=== PATIENT | male | born 1990 | race American Indian/Alaskan Native ===

== ENCOUNTER 2017-09-11 09:09 | Emergency (ER) | payer SELFPAY ==
[2017-09-11] MEDS ORDERED: NACL 0.9% 1000 ML 1,000 ML IV ONE (10:53)
[2017-09-11] MEDS ORDERED: ZOFRAN IV ONE (10:53)
[2017-09-11] MEDS ORDERED: DILAUDID IM ONE (10:53)
--- NOTE | 2017-09-11 11:05 | Emergency Department Report ---
ED General Adult HPI - General Chief complaint: Pain General Stated complaint: GROIN PAIN Time Seen by Provider: 09/11/17 10:21 Source: patient Mode of arrival: Ambulatory Limitations: No Limitations - History of Present Illness Initial comments: This is a 27-year-old male nontoxic, well nourished in appearance, no acute signs of distress left-sided testicular and groin pain 4 days. He stated 4 days ago he slipped and did a split with his legs and developed sharp testicular pain. Denies any trauma directly to the testicular region. Denies any dysuria, polyuria, hematuria, fever, chills, nausea, vomiting, chest pain, shortness of breath, numbness, telemetry, back pain. Patient denies any trauma to any other extremities. Denies any allergies. Past medical history includes asthma. 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 MD Complaint: left testicular pain -: Gradual, days(s) (4) Location: genitals (left testicle) Radiation: non-radiation Severity scale (0 -10): 10 Quality: aching, sharp Consistency: constant Improves with: none Worsens with: none Associated Symptoms: denies other symptoms. denies: confusion, chest pain, cough, diaphoresis, fever/chills, headaches, loss of appetite, malaise, nausea/ vomiting, rash, seizure, shortness of breath, syncope, weakness Treatments Prior to Arrival: none - Related Data Allergies Allergy/AdvReac Type Severity Reaction Status Date / Time No Known Allergies Allergy Unverified 09/11/17 09:26 ED Review of Systems ROS: Stated complaint: GROIN PAIN Other details as noted in HPI Constitutional: denies: chills, fever Eyes: denies: eye pain, eye discharge, vision change ENT: denies: ear pain, throat pain Respiratory: denies: cough, shortness of breath, wheezing Cardiovascular: denies: chest pain, palpitations Endocrine: no symptoms reported Gastrointestinal: denies: abdominal pain, nausea, diarrhea Genitourinary: testicular pain. denies: urgency, dysuria Musculoskeletal: denies: back pain, joint swelling, arthralgia Skin: denies: rash, lesions Neurological: denies: headache, weakness, paresthesias Psychiatric: denies: anxiety, depression Hematological/Lymphatic: denies: easy bleeding, easy bruising ED Past Medical Hx - Past Medical History Previous Medical History?: Yes Hx Asthma: Yes Additional medical history: Left wrist fx, Fx right thumb and left thumb fx, lower back pain - Surgical History Past Surgical History?: No - Social History Smoking Status: Current Every Day Smoker Substance Use Type: Alcohol, Marijuana, Non Opiate Pain ED Physical Exam - General Limitations: No Limitations General appearance: alert, in no apparent distress - Head Head exam: Present: atraumatic, normocephalic - Eye Eye exam: Present: normal appearance, PERRL, EOMI. Absent: scleral icterus, conjunctival injection, nystagmus, periorbital swelling, periorbital tenderness Pupils: Present: normal accommodation - ENT ENT exam: Present: normal exam, normal orophraynx, mucous membranes moist, TM's normal bilaterally, normal external ear exam - Neck Neck exam: Present: normal inspection, full ROM. Absent: tenderness, meningismus, lymphadenopathy, thyromegaly - Respiratory Respiratory exam: Present: normal lung sounds bilaterally. Absent: respiratory distress, wheezes, rales, rhonchi, stridor, chest wall tenderness, accessory muscle use, decreased breath sounds, prolonged expiratory - Cardiovascular Cardiovascular Exam: Present: regular rate, normal rhythm, normal heart sounds. Absent: irregular rhythm, systolic murmur, diastolic murmur, rubs, gallop - GI/Abdominal GI/Abdominal exam: Present: soft, normal bowel sounds. Absent: distended, tenderness, guarding, rebound, rigid, diminished bowel sounds - Rectal Rectal exam: Present: deferred - exam: Present: normal inspection, testicular tenderness (left), scrotal swelling (left), other (positive cremasteric reflex (normal). Negative baxter clapper deformity.). Absent: urethral discharge, vertical testicular lie External exam: Present: normal external exam. Absent: erythema, swelling, lesions, lacerations, ecchymosis, bleeding - Extremities Exam Extremities exam: Present: normal inspection, full ROM, normal capillary refill. Absent: tenderness, pedal edema, joint swelling, calf tenderness - Back Exam Back exam: Present: normal inspection, full ROM. Absent: tenderness, CVA tenderness (R), CVA tenderness (L), muscle spasm, paraspinal tenderness, vertebral tenderness, rash noted - Neurological Exam Neurological exam: Present: alert, oriented X3, CN II-XII intact, normal gait, reflexes normal - Psychiatric Psychiatric exam: Present: normal affect, normal mood - Skin Skin exam: Present: warm, dry, intact, normal color. Absent: rash - Other Other exam information: negative tense edema, blisters, or crepitus noted in the groin/testicular region noted. ED Course Vital Signs 09/11/17 09:26 Temperature 98.6 F Pulse Rate 96 H Respiratory 20 Rate Blood Pressure 109/64 O2 Sat by Pulse 100 Oximetry - Reevaluation(s) Reevaluation #1: 09/11/17 11:05 Patient is speaking in full sentences with no signs of distress noted. Reevaluation #2: 09/11/17 13:23 Second call put out to [facility] for Urology consult. - Consultations Consultation #1: 09/11/17 11:05 Dr. White has been consulted about patient history, physical examination and examined the patient and agrees with the plan of care to ED. Consultation #2: 09/11/17 14:20 Dr. Hung in [facility] was consulted about patient history, physical exam, and imaging and agrees to transport for further eval. Consultation #3: 09/11/17 14:21 Dr. Rey [facility] was consulted and accepts patients. ED Medical Decision Making - Lab Data Result diagrams: 09/11/17 10:55 09/11/17 10:55 - Medical Decision Making This is a 27-year-old male that presents with acute epididiymitis and decreased blood flow to left testis. Patient was examined by myself and Dr. White. Patient received Rocephine and Azithromycin in the ED for epididimyitis. Patient was consulted with Dr. Hung ([facility]) and agrees to have the patient transferred for further evaluation to the ED. Dr. Rey in [facility] accepted patient. Patient was notified of the plan and agrees with the plan with no further questions noted by the patient. At time time of transport, the patient does not seem toxic or ill in appearance. No acute signs of distress noted. Patient agrees to transport treatment plan of care. No further questions noted by the patient. Critical care attestation.: If time is entered above; I have spent that time in minutes in the direct care of this critically ill patient, excluding procedure time. ED Disposition Clinical Impression: Acute epididymitis UTI (urinary tract infection) Qualifiers: Urinary tract infection type: site unspecified Hematuria presence: without hematuria Qualified Code(s): N39.0 - Urinary tract infection, site not specified Disposition: DC/TX-70 ANOTHER TYPE HLTHCARE Is pt being admited?: No Condition: Stable Instructions: Epididymitis (ED) Referrals: PRIMARY CARE, [Primary Care Provider] - 3-5 Days Forms: STI Treatment and Prevention
[2017-09-11 11:27] LABS: Alanine Aminotransferase 19 units/L (7-56); Albumin 3.6 g/dL (3.9-5); Albumin/Globulin Ratio 0.9 %; Alkaline Phosphatase 123 units/L (35-129); Anion Gap 16 mmol/L; BUN/Creatinine Ratio 13; Blood Urea Nitrogen 9 mg/dL (9-20); Calcium 8.7 mg/dL (8.4-10.2); Carbon Dioxide 26 mmol/L (22-30); Chloride 100.2 mmol/L (98-107); Glucose 94 mg/dL (75-100); Potassium 4.3 mmol/L (3.6-5.0); Sodium 138 mmol/L (137-145); Total Protein 7.8 g/dL (6.3-8.2)
[2017-09-11 11:32] LABS: Basophils % (Auto) 0.3 % (0.0-1.8); Eosinophils % (Auto) 0.4 % (0.0-4.3); Hematocrit 42.9 % (35.5-45.6); Hemoglobin 14.6 gm/dl (11.8-15.2); Mean Corpuscular HGB Conc 34 % (32-34); Mean Corpuscular Hemoglobin 31 pg (28-32); Mean Corpuscular Volume 91 fl (84-94); Platelet Count 253 K/mm3 (140-440); Red Blood Count 4.69 M/mm3 (3.65-5.03); Red Cell Distribution Width 13.8 % (13.2-15.2); White Blood Count 12.6 K/mm3 (4.5-11.0)
--- NOTE | 2017-09-11 11:58 | Ultrasound Report ---
TESTICULAR ULTRASOUND WITH DUPLEX DOPPLER ULTRASOUND: 09/11/17 10:21:00 CLINICAL: Left scrotal pain and swelling. FINDINGS: High resolution ultrasound demonstrated normal appearing testes with normal echogenicity size and contours. No testicular mass. The right testis measured 4.5 x 2.7 x 3.0cm. The left testis measured 3.4 x 2.0 x 2.5cm. Marked left scrotal wall thickening and a small left hydrocele. The left epididymis is greatly enlarged and demonstrates marked diffuse increased blood flow by color and pulse Doppler. Blood flow in the left testis is reduced compared to the right by color and pulsed Doppler. Normal spectral waveforms in both testes. The right epididymis is normal with normal blood flow by color and pulsed Doppler. IMPRESSION: Acute left epididymitis. Reduced blood flow in the left testis is probably related to reduced transmission of sound through the thickened skin of the left scrotum.
[2017-09-11 12:27] LABS: Bacteria,Urine 1+ /HPF (Negative); Bilirubin,Urine NEG (Negative); Blood,Urine NEG (Negative); Ketones,Urine NEG (Negative); Leukocyte Esterase,Urine SM (Negative); Mucus,Urine 2+ /HPF; Nitrite,Urine NEG (Negative); Protein,Urine <15 mg/dL mg/dL (Negative)
[2017-09-11] MEDS ORDERED: ZITHROMAX PO ONE (13:26)
[2017-09-11] MEDS ORDERED: XYLOCAINE 1% MPF 5 mL INFILTRATI ONE (13:27)
[2017-09-11] MEDS ORDERED: ROCEPHIN IM ONE (13:27)
[2017-09-11 14:51] VITALS: BP 110/70
== END 2017-09-11 15:33 | disposition other institution (70) ==
LOC: ED 09:09
DX: N45.1 Epididymitis (principal); N39.0 Urinary tract infection, site not specified; F17.210 Nicotine dependence, cigarettes, uncomplicated; F12.10 Cannabis abuse, uncomplicated
CPT/HCPCS: 36415; 80053; 81001; 85025; 93975; 96361; 96372; 96374; 99285; J0696; J1170; J2405; J7030